=== PATIENT | female | born 1980 | race Two or more races ===

== ENCOUNTER 2023-10-26 19:33 | Emergency (ER) | payer MEDICAID, OTHER ==
[~2023-10-26] VITALS: Ht 157.5 cm; Wt 91.7 kg
[2023-10-26 19:41] VITALS: BP 162/90; PULSE 92; RESP 20; TEMP 98.8; O2SAT 98
[2023-10-26] MEDS ORDERED: HYDR2.5C39 TOP (22:11)
== END 2023-10-26 22:35 | disposition home or self-care (01) ==
LOC: ER 19:33
DX: K64.4 Residual hemorrhoidal skin tags (principal)